=== PATIENT | female | born 1980 | race American Indian/Alaskan Native ===

== ENCOUNTER 2018-02-01 20:46 | Emergency (ER) | payer BC ==
[2018-02-01 20:46] VITALS: BMI 22.7
[2018-02-01 21:10] VITALS: RESP 18; TEMP 98.3
--- NOTE | 2018-02-01 21:11 | ED PDOC ---
Arrival/HPI - General Chief Complaint: Abdominal Pain Time Seen by Provider: 02/01/18 20:53 Historian: Patient - History of Present Illness Narrative History of Present Illness (Text): 02/01/18 21:10 Janice Redding is a 37 year old female, with past medical history ovarian cysts, who presents to the complaining of right lower abdominal/pelvic discomfort for the past day. Patient denies any fever, chills, nausea, vomiting , diarrhea, urinary complaints, vaginal discharge, back pain, or any other complaints. Time/Duration: 24 hours Symptom Onset: Gradual Symptom Course: Unchanged Activities at Onset: Light Context: Home Past Medical History - Provider Review Nursing Documentation Reviewed: Yes - Past History Past History: No Previous - Infectious Disease Hx of Infectious Diseases: None - Tetanus Immunization Tetanus Immunization: Unknown - Cardiac Hx Cardiac Disorders: No - Pulmonary Hx Respiratory Disorders: No - Neurological Hx Neurological Disorder: No - HEENT Hx HEENT Disorder: Yes Hx Sinusitis: Yes - Renal Hx Renal Disorder: No - Endocrine/Metabolic Hx Endocrine Disorders: No - Hematological/Oncological Hx Blood Disorders: No - Integumentary Hx Dermatological Disorder: No - Musculoskeletal/Rheumatological Hx Musculoskeletal Disorders: No - Gastrointestinal Hx Gastrointestinal Disorders: No - Genitourinary/Gynecological Hx Genitourinary Disorders: No - Psychiatric Hx Psychophysiologic Disorder: Yes Hx Depression: No Hx Emotional Abuse: No Hx Physical Abuse: No Hx Substance Use: No Other/Comment: OCD and insomnia - Surgical History Other/Comment: Sinus Surgery 2005 - Anesthesia Hx Anesthesia: Yes Hx Anesthesia Reactions: No Hx Malignant Hyperthermia: No - Suicidal Assessment Feels Threatened In Home Enviroment: No Family/Social History - Physician Review Nursing Documentation Reviewed: Yes Family/Social History: Unknown Family HX Smoking Status: Light Smoker < 10 Cigarettes Daily Hx Alcohol Use: Yes Frequency of alcohol use: Socially Hx Substance Use: No Allergies/Home Meds Allergies/Adverse Reactions: Allergies aspirin Allergy (Verified 08/24/16 15:36) ANAPHYLAXIS Home Medications: Home Meds Medication Instructions Recorded Confirmed FLUoxetine [Prozac] 0 mg PO DAILY 08/24/16 02/01/18 Review of Systems - Physician Review All systems were reviewed & negative as marked: Yes - Review of Systems Constitutional: Normal. absent: Fevers Eyes: Normal ENT: Normal Respiratory: Normal. absent: SOB, Cough Cardiovascular: Normal. absent: Chest Pain Gastrointestinal: Abdominal Pain. absent: Diarrhea, Nausea, Vomiting Genitourinary Female: Normal. absent: Dysuria, Frequency, Hematuria, Urine Output Changes Musculoskeletal: Normal. absent: Back Pain, Neck Pain Skin: Normal. absent: Rash Neurological: Normal. absent: Headache, Dizziness Endocrine: Normal Hemo/Lymphatic: Normal Psychiatric: Normal Physical Exam Vital Signs Reviewed: Yes Vital Signs Temp Pulse Resp BP Pulse Ox 02/01/18 23:00 75 18 138/87 95 02/01/18 21:09 98.3 F 100 H 18 138/113 H 98 Temperature: Afebrile Blood Pressure: Normal Pulse: Regular Respiratory Rate: Normal Appearance: Positive for: Well-Appearing, Non-Toxic, Comfortable Pain Distress: None Mental Status: Positive for: Alert and Oriented X 3 - Systems Exam Head: Present: Atraumatic, Normocephalic Pupils: Present: PERRL Extroacular Muscles: Present: EOMI Conjunctiva: Present: Normal Mouth: Present: Moist Mucous Membranes Neck: Present: Normal Range of Motion. No: Meningeal Signs, MIDLINE TENDERNESS , Paraspinal Tenderness Respiratory/Chest: Present: Clear to Auscultation, Good Air Exchange. No: Respiratory Distress, Accessory Muscle Use Cardiovascular: Present: Regular Rate and Rhythm, Normal S1, S2. No: Murmurs Abdomen: Present: Tenderness (Mild tenderness to right lower abdomen/pelvic area ). No: Distention, Peritoneal Signs, Rebound, Guarding Genitourinary/Pelvic Exam: Present: Normal External Genitalia, Cervical os Closed, Other (THU Edwards present as vp compliance). No: Vaginal Discharge, Adenexal Tenderness, Cervical Motion Tendernes Back: Present: Normal Inspection. No: CVA Tenderness, Midline Tenderness, Paraspinal Tenderness Upper Extremity: Present: Normal Inspection. No: Cyanosis, Edema Lower Extremity: Present: Normal Inspection. No: Edema Neurological: Present: GCS=15, CN II-XII Intact, Speech Normal Skin: Present: Warm, Dry, Normal Color. No: Rashes Psychiatric: Present: Alert, Oriented x 3, Normal Insight, Normal Concentration Medical Decision Making ED Course and Treatment: 02/01/18 21:11 Impression: 37 year old female complaining of right lower abdominal discomfort. Plan: -- Labs, lipase -- Urinalysis -- IV fluids -- Reassess and disposition Progress Notes: 02/02/18 00:26 CT Abdomen and Pelvis shows: Lung bases: Minimal atelectasis/scarring. ABDOMEN: Liver: Unremarkable. No mass. Gallbladder and bile ducts: No calcified stones. No ductal dilation. Pancreas: No ductal dilation. No mass. Spleen: No splenomegaly. Adrenals: No mass. Kidneys and ureters: No mass. Minimal pelvocaliectasis of RIGHT kidney. Normal caliber ureters. Stomach and bowel: No definite mural thickening. No obstruction. Appendix: Normal caliber. No inflammation. PELVIS: Bladder: Unremarkable. Reproductive: IUD. 2.9 x 2.8 x 2.6 cm hypodense lesion within LEFT ovary. ABDOMEN and PELVIS: Intraperitoneal space: Trace free fluid within pelvis. No free air. Bones/joints: No acute fracture. Soft tissues: Tiny umbilical hernia containing fat. Vasculature: Unremarkable. No aneurysm. Lymph nodes: No pathologically enlarged lymph nodes. IMPRESSION: 1. Probable LEFT ovarian cyst. Consider ultrasound. 2. Minimal pelvocaliectasis of RIGHT kidney, nonspecific. Correlate with urinalysis to exclude infection. 3. Incidental/non-acute findings are described above. - Lab Interpretations Lab Results: 02/01/18 21:43 02/01/18 21:43 Lab Results 02/01/18 22:20: Urine Color Yellow, Urine Appearance Clear, Urine pH 7.5, Ur Specific [place] 1.015, Urine Protein Negative, Urine Glucose (UA) Negative, Urine Ketones Negative, Urine Blood Negative, Urine Nitrate Negative, Urine Bilirubin Negative, Urine Urobilinogen 0.2, Ur Leukocyte Esterase Negative, Urine HCG, Qual Negative 02/01/18 21:43: WBC 12.2 H, RBC 4.14, Hgb 12.8, Hct 38.2, MCV 92.3, MCH 30.9, MCHC 33.5, RDW 13.3, Plt Count 324, MPV 8.7 02/01/18 21:43: Sodium 141, Potassium 3.5 L, Chloride 102, Carbon Dioxide 26, Anion Gap 17, BUN 15, Creatinine 0.8, Est GFR ( Amer) > 60, Est GFR (Non- Af Amer) > 60, Random Glucose 119 H, Calcium 9.0, Total Bilirubin 0.4, AST 21, ALT 23, Alkaline Phosphatase 42, Total Protein 7.5, Albumin 4.4, Globulin 3.1, Albumin/Globulin Ratio 1.4, Lipase 176 I have reviewed the lab results: Yes - RAD Interpretation Radiology Orders: 02/01/18 22:30 ABD & PELVIS IV CONTRAST ONLY [CT] Stat Lining Maker: Radiologist - Medication Orders Current Medication Orders: Discontinued Medications Hydromorphone HCl (Dilaudid) 1 mg IVP STAT STA Stop: 02/01/18 22:36 Last Admin: 02/01/18 22:46 Dose: 1 mg MAR Pain Assessment Document 02/01/18 22:46 JOL (Rec: 02/01/18 22:46 [id number]) Pain Reassessment Is this a pain reassessment? No Sleep Is patient sleeping during reassessment? No Presence of Pain Presence of Pain Yes Pain Scale Used Pain Scale Used Numeric Location Left, Right or Bilateral Right Upper or Lower Lower Pain Location Body Site Abdomen Description Description Stabbing Intensity of Pain at present 8 Pain Behavior Withdrawal from Touch Restlessness Facial Grimacing Aggravating Factors ADL's Changing Position IVP Administration Document 02/01/18 22:46 JOL (Rec: 02/01/18 22:46 [id number]) Charges for Administration # of IVP Administrations 1 Sodium Chloride (Sodium Chloride 0.9%) 1,000 mls @ 999 mls/hr IV .Q1H1M STA Stop: 02/01/18 22:14 Last Admin: 02/01/18 21:25 Dose: 999 mls/hr eMAR Start Stop Document 02/01/18 21:25 JOL (Rec: 02/01/18 21:25 [id number] Intravenous Solution Start Date 02/01/18 Start Time 21:25 End Date 02/01/18 End time 22:26 Total Infusion Time 61 Ondansetron HCl (Zofran Inj) 4 mg IVP ONCE ONE Stop: 02/01/18 22:39 Last Admin: 02/01/18 22:46 Dose: 4 mg IVP Administration Document 02/01/18 22:46 JOL (Rec: 02/01/18 22:47 [id number]) Charges for Administration # of IVP Administrations 1 - Scribe Statement The provider has reviewed the documentation as recorded by the Connie Biggs Provider Scribe Attestation: All medical record entries made by the Scribe were at my direction and personally dictated by me. I have reviewed the chart and agree that the record accurately reflects my personal performance of the history, physical exam, medical decision making, and the department course for this patient. I have also personally directed, reviewed, and agree with the discharge instructions and disposition. Disposition/Present on Arrival - Present on Arrival Any Indicators Present on Arrival: No History of DVT/PE: No History of Uncontrolled Diabetes: No Urinary Catheter: No History of Decub. Ulcer: No History Surgical Site Infection Following: None - Disposition Have Diagnosis and Disposition been Completed?: Yes Diagnosis: Abdominal pain, Ovarian cyst Disposition: HOME/ ROUTINE Disposition Time: 01:37 Patient Plan: Discharge Condition: GOOD Discharge Instructions (ExitCare): Ovarian Cyst (DC) Additional Instructions: Take meds as prescribed/follow up with your diamond setter this week/any worsening symptoms return to the emergency room Prescriptions: Tramadol HCl [Ultram] 50 mg PO Q6 PRN #16 tab PRN Reason: Pain, Moderate (4-7) Forms: [facility] ([place])
[2018-02-01] MEDS ORDERED: Sodium Chloride 0.9% 1,000 ML IV STA (21:14)
[2018-02-01 21:53] LABS: HEMOGLOBIN 12.8 g/dL (12.0-16.0); MEAN CELL VOLUME 92.3 fl (80.0-105.0); MEAN CORPUSCULAR HEMOGLOBIN 30.9 pg (25.0-35.0); MEAN CORPUSCULAR HGB CONC 33.5 g/dl (31.0-37.0); MEAN PLATELET VOLUME 8.7 fl (7.0-11.0); RBC 4.14 10^6/uL (3.5-6.1); RED CELL DISTRIBUTION WIDTH 13.3 % (11.5-14.5); WHITE BLOOD COUNT 12.2 10^3/ul (4.5-11.0)
[2018-02-01 22:07] LABS: ALB/GLOB RATIO 1.4 (1.1-1.8); ALBUMIN 4.4 g/dL (3.0-4.8); ALT/SGPT 23 U/L (7-56); AST/SGOT 21 U/L (14-36); BLOOD UREA NITROGEN 15 mg/dL (7-21); GFR AFRICAN-AMERICAN > 60; GFR NON-AFRICAN AMERICAN > 60; LIPASE 176 U/L (23-300)
[2018-02-01] MEDS ORDERED: HYDROmorphone 1 mg/ml ISec IVP STA (22:35)
[2018-02-01 22:39] LABS: PH,URINE 7.5 (4.7-8.0); URINE BILIRUBIN NEGATIVE (NEGATIVE); URINE BLOOD NEGATIVE (NEGATIVE); URINE GLUCOSE (UA) NEGATIVE (NEGATIVE); URINE LEUKOCYTE ESTERASE NEGATIVE Leu/uL (NEGATIVE); URINE PROTEIN NEGATIVE mg/dL (<30 mg/dL); URINE UROBILINOGEN 0.2 E.U./dL (<1 E.U./dL)
[2018-02-01 22:41] LABS: URINE COLOR YELLOW (YELLOW)
[2018-02-01 22:42] LABS: HCG,QUALITATIVE URINE NEGATIVE (NEGATIVE); URINE APPEARANCE CLEAR (CLEAR)
[2018-02-01] MEDS ORDERED: Iohexol 350 MG/100 ML VIAL ONE (22:57)
--- NOTE | 2018-02-02 00:20 | CT ---
EXAM: CT Abdomen and Pelvis With Intravenous Contrast CLINICAL HISTORY: 37 years old, female; Pain; Abdominal pain; Acute TECHNIQUE: Axial computed tomography images of the abdomen and pelvis with intravenous contrast. All CT scans at this facility use one or more dose reduction techniques, viz.: automated exposure control; ma/kV adjustment per patient size (including targeted exams where dose is matched to indication; i.e. head); or iterative reconstruction technique. Coronal and sagittal reformatted images were created and reviewed. CONTRAST: 100 mL of OMNI 350 administered intravenously. COMPARISON: No relevant prior studies available. FINDINGS: Lung bases: Minimal atelectasis/scarring. ABDOMEN: Liver: Unremarkable. No mass. Gallbladder and bile ducts: No calcified stones. No ductal dilation. Pancreas: No ductal dilation. No mass. Spleen: No splenomegaly. Adrenals: No mass. Kidneys and ureters: No mass. Minimal pelvocaliectasis of RIGHT kidney. Normal caliber ureters. Stomach and bowel: No definite mural thickening. No obstruction. Appendix: Normal caliber. No inflammation. PELVIS: Bladder: Unremarkable. Reproductive: IUD. 2.9 x 2.8 x 2.6 cm hypodense lesion within LEFT ovary. ABDOMEN and PELVIS: Intraperitoneal space: Trace free fluid within pelvis. No free air. Bones/joints: No acute fracture. Soft tissues: Tiny umbilical hernia containing fat. Vasculature: Unremarkable. No aneurysm. Lymph nodes: No pathologically enlarged lymph nodes. IMPRESSION: 1. Probable LEFT ovarian cyst. Consider ultrasound. 2. Minimal pelvocaliectasis of RIGHT kidney, nonspecific. Correlate with urinalysis to exclude infection. 3. Incidental/non-acute findings are described above.
[2018-02-02 02:20] VITALS: BP 130/78; PULSE 72; O2SAT 97
== END 2018-02-02 01:45 | disposition home or self-care (01) ==
LOC: ED 20:46
DX: R10.9 Unspecified abdominal pain (principal); N83.202 Unspecified ovarian cyst, left side
CPT/HCPCS: 74177; 80053; 81003; 83690; 84703; 85027; 96361; 96374; 96375; 99285; J1170; J2405; J7040; Q9967

== ENCOUNTER 2018-08-23 13:39 | Emergency (ER) | payer BC ==
[2018-08-23 13:39] VITALS: BMI 22.7
[2018-08-23] MEDS ORDERED: MethylPREDNISolone 40 mg Vial ONE (13:48)
[2018-08-23] MEDS ORDERED: Albuterol-Ipratrop 3 mg / 0.5 (3 ml) UD ONE (13:48)
[2018-08-23] MEDS ORDERED: DiphenhydrAMINE 50 mg/ml Inj ONE (13:49)
[2018-08-23] MEDS ORDERED: EPINEPHrine 1 mg/ml (1:1000) Inj SC STA (13:51)
[2018-08-23] MEDS ORDERED: Sodium Chloride 0.9% 1,000 ML IV STA (13:52)
--- NOTE | 2018-08-23 13:55 | ED PDOC ---
Arrival/HPI - General Chief Complaint: Allergic Reaction Historian: Patient - History of Present Illness Narrative History of Present Illness (Text): 08/23/18 13:52 38 y/o female, pmh including asthma, allergic to aspirin, +smoker, c/o coughing and difficulty breathing x 1 hour s/p accidentally took the aspirin. Pt. stated that she feels throat itching, swelling, coughing, wheezing with coughing, hypox to low 90 room air, hard to speak, no night sweat, no dizziness, no change in vision, no other medical or psychological complaints. Past Medical History - Provider Review Nursing Documentation Reviewed: Yes - Past History Past History: No Previous - Infectious Disease Hx of Infectious Diseases: None - Tetanus Immunization Tetanus Immunization: Unknown - Cardiac Hx Cardiac Disorders: No - Pulmonary Hx Respiratory Disorders: No - Neurological Hx Neurological Disorder: No - HEENT Hx HEENT Disorder: Yes - Renal Hx Renal Disorder: No - Endocrine/Metabolic Hx Endocrine Disorders: No - Hematological/Oncological Hx Blood Disorders: No - Integumentary Hx Dermatological Disorder: No - Musculoskeletal/Rheumatological Hx Musculoskeletal Disorders: No - Gastrointestinal Hx Gastrointestinal Disorders: No - Genitourinary/Gynecological Hx Genitourinary Disorders: No - Psychiatric Hx Psychophysiologic Disorder: Yes Hx Depression: No Hx Emotional Abuse: No Hx Physical Abuse: No Hx Substance Use: No Other/Comment: OCD and insomnia - Surgical History Other/Comment: Sinus Surgery 2005 - Anesthesia Hx Anesthesia: Yes Hx Anesthesia Reactions: No Hx Malignant Hyperthermia: No - Suicidal Assessment Feels Threatened In Home Enviroment: No Family/Social History - Physician Review Nursing Documentation Reviewed: Yes Family/Social History: Unknown Family HX Smoking Status: Light Smoker < 10 Cigarettes Daily Hx Alcohol Use: Yes Hx Substance Use: No Allergies/Home Meds Allergies/Adverse Reactions: Allergies aspirin Allergy (Verified 08/23/18 13:46) ANAPHYLAXIS Review of Systems - Review of Systems Constitutional: absent: Fatigue, Fevers Eyes: absent: Vision Changes ENT: Sore Throat. absent: Hearing Changes, Voice Changes Respiratory: SOB, Cough Cardiovascular: absent: Chest Pain Gastrointestinal: absent: Abdominal Pain, Nausea, Vomiting, Food Intolerance Skin: absent: Rash, Pruritis Neurological: absent: Headache, Dizziness Psychiatric: absent: Anxiety, Depression, Suicidal Ideation Physical Exam Vital Signs Reviewed: Yes Vital Signs Temp Pulse Resp BP Pulse Ox 08/23/18 13:44 98.6 F 119 H 28 H 110/68 88 L Temperature: Afebrile Blood Pressure: Normal Pulse: Tachycardic Respiratory Rate: Tachypneic Appearance: Positive for: Well-Appearing, Non-Toxic, Uncomfortable Pain Distress: None Mental Status: Positive for: Alert and Oriented X 3 - Systems Exam Head: Present: Atraumatic, Normocephalic Pupils: Present: PERRL Extroacular Muscles: Present: EOMI Conjunctiva: Present: Normal Mouth: Present: Moist Mucous Membranes Neck: Present: Normal Range of Motion Respiratory/Chest: Present: Wheezes, Decreased Breath Sounds, Tachypneic. No: Respiratory Distress, Accessory Muscle Use, Retracting, Rhonchi, Tender to Palpation Cardiovascular: Present: Regular Rate and Rhythm, Normal S1, S2. No: Murmurs Abdomen: No: Tenderness, Distention, Peritoneal Signs Back: Present: Normal Inspection Upper Extremity: Present: Normal Inspection. No: Cyanosis, Edema Lower Extremity: Present: Normal Inspection. No: Edema Neurological: Present: GCS=15, CN II-XII Intact, Speech Normal Skin: Present: Warm, Dry, Normal Color. No: Rashes Psychiatric: Present: Alert, Oriented x 3, Normal Insight, Normal Concentration Medical Decision Making ED Course and Treatment: 08/23/18 13:55 -Labs -IV solumedrol/pepcid/benadryl/epi 0.3mg prn/fluid -cardiac monitor -Observe and reassess 08/23/18 13:58 -Pt. responded well to the above treatment without epi, vitally stable with oxygen to 100 percent and HR 85, epi cancelled, will monitor her. 08/23/18 14:59 -Labs are nonsignficant -Chest xray: ER wet read: no acative disease -Pt. is asymptomatic, talking and eating/drinking well without difficult, vitally stable, will continue to monitor. 08/23/18 17:29 -Wheezing resolved, bilateral clear to auscultate with no respiratory distress, tolerating solid and fluid, vitally stable on room air, observed in the ER for hours. -Airway patent, all labs and radiology results discussed, vitally stable, pt. request to be discharged home. -Discharge home with benadryl, pepcid, prednisone, albuterol MDI, epipen as needed for anaphylatic, avoid aspirin or similar class medication, follow up with your own pmd within 2 days, return to the ER for any new or worsening signs or symptoms. - Critical Care Critical Care Minutes: 30 minutes Critical Care Time: Unstable Narrative Critical Care (Text): 08/23/18 17:30 respiratory distress from allergic reaction, hypoxic with wheezing, IV steroid and continuous nebulizer, close monitoring. - RAD Interpretation Radiology Orders: 08/23/18 13:49 CHEST PORTABLE [RAD] Stat - Medication Orders Current Medication Orders: Albuterol/Ipratropium (Duoneb 3 Mg/0.5 Mg (3 Ml) Ud) 3 ml IH Q15M ANNMARIE Stop: 08/23/18 14:31 Diphenhydramine HCl (Benadryl) 50 mg IVP STAT STA Stop: 08/23/18 13:50 Epinephrine HCl (Epinephrine) 0.3 mg SC STAT STA Stop: 08/23/18 13:52 Methylprednisolone (Solu-Medrol) 125 mg IVP STAT STA Stop: 08/23/18 13:50 - PA / HEALTH CARE FACILITIES INSPECTOR / Resident Statement MD/DO has reviewed & agrees with the documentation as recorded. Disposition/Present on Arrival - Present on Arrival Any Indicators Present on Arrival: No History of DVT/PE: No History of Uncontrolled Diabetes: No Urinary Catheter: No History of Decub. Ulcer: No History Surgical Site Infection Following: None - Disposition Have Diagnosis and Disposition been Completed?: Yes Diagnosis: Allergic reaction Disposition: HOME/ ROUTINE Disposition Time: 17:30 Patient Plan: Discharge Patient Problems: Current Active Problems Problem Status Onset Allergic reaction Acute Condition: IMPROVED Additional Instructions: -Discharge home with benadryl, pepcid, prednisone, albuterol MDI, epipen as needed for anaphylatic, avoid aspirin or similar class medication, follow up with your own pmd within 2 days, return to the ER for any new or worsening signs or symptoms. Prescriptions: Albuterol HFA [Ventolin HFA 90 mcg/actuation (8 g)] 2 puff IH [id number] PRN #1 inhaler PRN Reason: Other DiphenhydrAMINE [Benadryl] 50 mg PO QID PRN #20 cap PRN Reason: Other Epinephrine HCl [Epipen Auto-Injector] 0.3 mg MR ONCE PRN #1 units PRN Reason: other Famotidine [Pepcid] 20 mg PO BID #12 tab Prednisone 50 mg PO DAILY #5 tablet Referrals: [facility] [place] [Outside] - Follow up with primary Forms: [facility] (Romanian), WORK NOTE
[2018-08-23] MEDS: DiphenhydrAMINE 50 mg/ml Inj IVP STA (14:00)
--- NOTE | 2018-08-23 14:05 | ED PDOC ---
Arrival/HPI - General Chief Complaint: Allergic Reaction Historian: EMS - History of Present Illness Narrative History of Present Illness (Text): 08/23/18 13:50 38 year old female smoker, whose past medical history includes asthma, allergic to Aspirin, presents to the emergency department after taking aspirin an hour ago. Patient is coughing and has difficulty breathing. Upon arrival to ER patient is hypoxic on room air 87%. HPI and ROS limited due to patient's status. Past Medical History - Past History Past History: No Previous - Infectious Disease Hx of Infectious Diseases: None - Tetanus Immunization Tetanus Immunization: Unknown - Cardiac Hx Cardiac Disorders: No - Pulmonary Hx Respiratory Disorders: No - Neurological Hx Neurological Disorder: No - HEENT Hx HEENT Disorder: Yes - Renal Hx Renal Disorder: No - Endocrine/Metabolic Hx Endocrine Disorders: No - Hematological/Oncological Hx Blood Disorders: No - Integumentary Hx Dermatological Disorder: No - Musculoskeletal/Rheumatological Hx Musculoskeletal Disorders: No - Gastrointestinal Hx Gastrointestinal Disorders: No - Genitourinary/Gynecological Hx Genitourinary Disorders: No - Psychiatric Hx Psychophysiologic Disorder: Yes Hx Depression: No Hx Emotional Abuse: No Hx Physical Abuse: No Hx Substance Use: No Other/Comment: OCD and insomnia - Surgical History Other/Comment: Sinus Surgery 2005 - Anesthesia Hx Anesthesia: Yes Hx Anesthesia Reactions: No Hx Malignant Hyperthermia: No - Suicidal Assessment Feels Threatened In Home Enviroment: No Family/Social History Smoking Status: Light Smoker < 10 Cigarettes Daily Hx Alcohol Use: Yes Hx Substance Use: No Allergies/Home Meds Allergies/Adverse Reactions: Allergies aspirin Allergy (Verified 08/23/18 13:46) ANAPHYLAXIS Home Medications: Home Meds Medication Instructions Recorded Confirmed No Known Home Med 08/23/18 08/23/18 Physical Exam Vital Signs Temp Pulse Resp BP Pulse Ox 08/23/18 13:44 98.6 F 119 H 28 H 110/68 88 L Medical Decision Making ED Course and Treatment: 08/23/18 13:50 Impression: Differential Diagnosis included but are not limited to: Plan: -- Reassess and disposition Prior Visits: Notes and results from previous visits were reviewed. Patient was last seen in the emergency department on Progress Notes: Disposition/Present on Arrival - Present on Arrival History of DVT/PE: No History of Uncontrolled Diabetes: No Urinary Catheter: No History of Decub. Ulcer: No History Surgical Site Infection Following: None - Disposition
[2018-08-23] MEDS: Albuterol-Ipratrop 3 mg / 0.5 (3 ml) UD IH SCH ×2 (14:11)
[2018-08-23 14:14] LABS: BASO # 0.01 K/mm3 (0.0-2.0); BASO % 0.2 % (0.0-3.0); EOS # 0.1 (0.0-0.7); GRAN # 3.14 (1.4-6.5); GRAN % 52.2 % (50.0-68.0); HEMOGLOBIN 14.5 g/dL (12.0-16.0); LYMPH # 2.6 (1.2-3.4); LYMPH % 43.6 % (22.0-35.0); MEAN CELL VOLUME 93.2 fl (80.0-105.0); MEAN CORPUSCULAR HEMOGLOBIN 30.9 pg (25.0-35.0); MEAN CORPUSCULAR HGB CONC 33.2 g/dl (31.0-37.0); MEAN PLATELET VOLUME 8.5 fl (7.0-11.0); MONO # 0.2 (0.1-0.6); RBC 4.69 10^6/uL (3.5-6.1); RED CELL DISTRIBUTION WIDTH 13.2 % (11.5-14.5)
[2018-08-23 14:22] LABS: ALB/GLOB RATIO 1.2 (1.1-1.8); ALBUMIN 4.3 g/dL (3.0-4.8); ALT/SGPT 27 U/L (7-56); AST/SGOT 33 U/L (14-36); BLOOD UREA NITROGEN 14 mg/dL (7-21); CALCIUM 9.1 mg/dL (8.4-10.5); GFR NON-AFRICAN AMERICAN > 60
--- NOTE | 2018-08-23 15:14 | RAD ---
Date of service: 08/23/2018 HISTORY: medical clearance COMPARISON: 10/15/2012. FINDINGS: LUNGS: The lungs are well inflated and clear. PLEURA: No pleural effusions or pneumothorax. CARDIOVASCULAR: The heart is normal in size. No aortic atherosclerotic calcification present. OSSEOUS STRUCTURES: Within normal limits for the patient's age. VISUALIZED UPPER ABDOMEN: Normal. OTHER FINDINGS: None. IMPRESSION: No active pulmonary disease.
[2018-08-23 17:20] VITALS: BP 119/67; TEMP 98.2
[2018-08-23 17:31] VITALS: PULSE 90; RESP 15; O2SAT 95
== END 2018-08-23 17:42 | disposition home or self-care (01) ==
LOC: ED 13:39
DX: T78.49XA Other allergy, initial encounter (principal); X58.XXXA Exposure to other specified factors, initial encounter
CPT/HCPCS: 71045; 80053; 83735; 84702; 85025; 96361; 96374; 96375; 99285; J1200; J2930; J7030